=== PATIENT | female | born 1970 | race Caucasian/White ===

== ENCOUNTER 2018-08-20 08:42 | Emergency (ER) | payer MEDICAID ==
[2018-08-20 08:47] VITALS: BP 153/88; PULSE 87; RESP 18; TEMP 98.3
[2018-08-20] MEDS ORDERED: TOBRAMYCIN 0.3% OPHTH DROPS 5 ML BTL RIGHT EYE STA (09:20)
--- NOTE | 2018-08-20 09:27 | ED ---
Eye Problem HPI - General Chief complaint: Eye Problems Stated complaint: poss pink eye Time Seen by Provider: 08/20/18 09:02 Source: patient, RN notes reviewed Mode of arrival: ambulatory Limitations: no limitations - History of Present Illness Initial comments: 48 show female presented emergency department with chief complaint of right eye drainage and crusting. Patient states his started yesterday thought it was initially just ALLERGIES but states that is not improving. Patient has taken some ALLERGY medication. Patient reports no fevers or chills no change in vision no trauma. She does not wear contacts. She states that she just has some mild redness in which she feeling. - Related Data Allergies Allergy/AdvReac Type Severity Reaction Status Date / Time No Known Allergies Allergy Verified 08/20/18 08:47 Review of Systems ROS Statement: Those systems with pertinent positive or pertinent negative responses have been documented in the HPI. ROS Other: All systems not noted in ROS Statement are negative. Past Medical History Past Medical History: No Reported History History of Any Multi-Drug Resistant Organisms: None Reported Past Surgical History: Breast Surgery Additional Past Surgical History / Comment(s): BREAST REDUCTION Past Psychological History: Anxiety, Depression Smoking Status: Never smoker Past Alcohol Use History: None Reported Past Drug Use History: None Reported General Exam Limitations: no limitations General appearance: alert, in no apparent distress Head exam: Present: atraumatic, normocephalic, normal inspection Eye exam: Present: PERRL, EOMI, conjunctival injection (Mild right). Absent: normal appearance, scleral icterus, periorbital swelling ENT exam: Present: normal exam, normal oropharynx, mucous membranes moist Neck exam: Present: normal inspection. Absent: tenderness, meningismus, lymphadenopathy Respiratory exam: Present: normal lung sounds bilaterally. Absent: respiratory distress, wheezes, rales, rhonchi, stridor Cardiovascular Exam: Present: regular rate, normal rhythm, normal heart sounds. Absent: systolic murmur, diastolic murmur, rubs, gallop, clicks Course Vital Signs 08/20/18 08:44 Temperature 98.3 F Pulse Rate 87 Respiratory 18 Rate Blood Pressure 153/88 O2 Sat by Pulse 98 Oximetry Medical Decision Making - Medical Decision Making 48-year-old female presented for right eye irritation. Patient appears to have conjunctivitis will be started on Tobrex eyedrops patient instructed to follow- up, cool compresses and return for any worsening symptoms. Disposition Clinical Impression: Bacterial conjunctivitis Disposition: HOME SELF-CARE Condition: Stable Instructions (If sedation given, give patient instructions): Conjunctivitis (ED ) Additional Instructions: Please return to the Emergency Department if symptoms worsen or any other concerns. Use Tobrex eyedrops 1 drop every 4 hours for 7 days. Is patient prescribed a controlled substance at d/c from ED?: No Referrals: Live Pollard MD [Primary Care Provider] - 1-2 days Time of Disposition: 09:27
== END 2018-08-20 09:31 | disposition home or self-care (01) ==
LOC: EC 08:42
DX: H10.9 Unspecified conjunctivitis (principal)
CPT/HCPCS: 99282

== ENCOUNTER 2018-11-18 07:08 | Emergency (ER) | payer MEDICAID ==
[2018-11-18] MEDS ORDERED: KETOROLAC 30 MG/ML 1 ML VIAL IVP STA (07:27)
[2018-11-18] MEDS ORDERED: methylPREDNISolone SOD SUCCI 125 MG/2 ML VIAL IV STA (07:27)
[2018-11-18] MEDS ORDERED: LORazepam 2 MG/ML INJ IV STA (07:28)
--- NOTE | 2018-11-18 07:35 | ED ---
Back Pain HPI - General Chief Complaint: Back Pain/Injury Stated Complaint: Back Pain Time Seen by Provider: 11/18/18 07:18 Source: patient Limitations: no limitations - History of Present Illness Initial Comments: This is a 48-year-old female with no prior history of back pain issues but states her mother has sciatica who states she started developing low back pain 2 days ago. She denies any particular injury she does states she readjusted her chair where she sits or for states she was fine for the next day she started developing pain which is gotten progressively worse each day. She states it's severe sharp with some slight radiation down the left buttock and into the hip no dysuria hematuria except she is on her period at this time no loss of function to bladder bowel movement control. She states she sneezed this morning when she was on the toilet and it got much much worse. She has any fevers chills nausea vomiting sweats just severe pain. MD Complaint: back pain - Related Data Home Medications Medication Instructions Recorded Confirmed ALPRAZolam [Xanax] 0.5 mg PO TID PRN 11/18/18 11/18/18 Calcium Carbonate [Calcium] 600 mg PO DAILY 11/18/18 11/18/18 Citalopram Hydrobromide [CeleXA] 40 mg PO HS 11/18/18 11/18/18 Cranberry Fruit Extract [Cranberry] 500 mg PO DAILY 11/18/18 11/18/18 Ibuprofen [Motrin Ib] 400 mg PO Q6H PRN 11/18/18 11/18/18 Magnesium 200 mg PO DAILY 11/18/18 11/18/18 Multivitamins, Thera [Multivitamin 1 tab PO DAILY 11/18/18 11/18/18 (formulary)] [place]-3 Fatty Acids [[place]-3] 1,000 mg PO DAILY 11/18/18 11/18/18 Previous Rx's Medication Instructions Recorded Cyclobenzaprine [Flexeril] 10 mg PO TID #14 tab 11/18/18 Ibuprofen 800 mg PO Q6HR PRN #20 tablet 11/18/18 methylPREDNISolone Dose Pack 4 mg PO DIRECTED #21 package 11/18/18 [Medrol Dose Pack] Allergies Allergy/AdvReac Type Severity Reaction Status Date / Time No Known Allergies Allergy Verified 11/18/18 08:35 Review of Systems ROS Statement: Those systems with pertinent positive or pertinent negative responses have been documented in the HPI. ROS Other: All systems not noted in ROS Statement are negative. Past Medical History Past Medical History: No Reported History History of Any Multi-Drug Resistant Organisms: None Reported Past Surgical History: Breast Surgery Additional Past Surgical History / Comment(s): BREAST REDUCTION Past Psychological History: Anxiety, Depression Smoking Status: Never smoker Past Alcohol Use History: None Reported Past Drug Use History: None Reported General Exam - General Exam Comments Initial Comments: This is a well-developed well-nourished awake alert oriented 5 female who is tearful during my interview with her Limitations: no limitations General appearance: alert, anxious, in distress Head exam: Present: atraumatic, normocephalic, normal inspection Eye exam: Present: normal appearance, PERRL, EOMI. Absent: scleral icterus, conjunctival injection, periorbital swelling ENT exam: Present: normal exam, mucous membranes moist Neck exam: Present: normal inspection, full ROM. Absent: tenderness, meningismus, lymphadenopathy Respiratory exam: Present: normal lung sounds bilaterally. Absent: respiratory distress, wheezes, rales, rhonchi, stridor Cardiovascular Exam: Present: regular rate, normal rhythm, normal heart sounds. Absent: systolic murmur, diastolic murmur, rubs, gallop, clicks GI/Abdominal exam: Present: soft, normal bowel sounds. Absent: distended, tenderness, guarding, rebound, rigid, bruit, pulsatile mass Rectal exam: Present: deferred Extremities exam: Present: normal inspection, full ROM, tenderness (Tenderness over the left gluteus musculature no calf tenderness), normal capillary refill. Absent: pedal edema, joint swelling, calf tenderness Back exam: Present: normal inspection, tenderness, paraspinal tenderness (Paraspinous muscle tenderness on the left lower lumbar spine region some evidence of muscle spasm bilaterally no definite vertebral body spinous process tenderness.). Absent: CVA tenderness (R), CVA tenderness (L) Neurological exam: Present: alert, oriented X3, CN II-XII intact Psychiatric exam: Present: normal affect, anxious Skin exam: Present: warm, dry, intact, normal color. Absent: rash Course Vital Signs 11/18/18 11/18/18 07:14 09:57 Temperature 97.6 F 97.9 F Pulse Rate 94 72 Respiratory 22 18 Rate Blood Pressure 147/77 98/50 O2 Sat by Pulse 98 98 Oximetry - Reevaluation(s) Reevaluation #1: 11/18/18 09:58 Patient did get a lot of relief from the treatment that was rendered. Medical Decision Making - Medical Decision Making The patient is feeling much improved I did discuss the findings with her she'll be discharged with appropriate medication she does have a planned encounter with [employer] in the future. - Lab Data Result diagrams: 11/18/18 08:00 Lab Results 11/18/18 11/18/18 Range/Units 08:00 08:35 Sodium 140 (137-145) mmol/L Potassium 4.1 (3.5-5.1) mmol/L Chloride 109 H (98-107) mmol/L Carbon Dioxide 23 (22-30) mmol/L Anion Gap 8 mmol/L BUN 15 (7-17) mg/dL Creatinine 0.76 (0.52-1.04) mg/dL Est GFR (CKD-EPI)AfAm >90 (>60 ml/min/1.73 sqM) Est GFR (CKD-EPI)NonAf >90 (>60 ml/min/1.73 sqM) Glucose 85 (74-99) mg/dL Calcium 9.7 (8.4-10.2) mg/dL Magnesium 1.9 (1.6-2.3) mg/dL Total Bilirubin 0.3 (0.2-1.3) mg/dL AST 25 (14-36) U/L ALT 30 (9-52) U/L Alkaline Phosphatase 67 (38-126) U/L Total Protein 7.0 (6.3-8.2) g/dL Albumin 4.1 (3.5-5.0) g/dL Urine Color Yellow Urine Appearance Clear (Clear) Urine pH 8.5 H (5.0-8.0) Ur Specific [place] 1.007 (1.001-1.035) Urine Protein Trace H (Negative) Urine Glucose (UA) Negative (Negative) Urine Ketones Negative (Negative) Urine Blood Moderate H (Negative) Urine Nitrite Negative (Negative) Urine Bilirubin Negative (Negative) Urine Urobilinogen <2.0 (<2.0) mg/dL Ur Leukocyte Esterase Moderate H (Negative) Urine RBC 10 H (0-5) /hpf Urine WBC 12 H (0-5) /hpf Ur Squamous Epith Cells 1 (0-4) /hpf Urine Bacteria Rare H (None) /hpf - Radiology Data Radiology results: report reviewed (Did review the imaging and report there is evidence of degenerative disease at L5-S1 and incidental finding also of a possible dermoid cyst on the left adnexa.), image reviewed Disposition Clinical Impression: Strain of lumbar region, Sciatica, Dermoid cyst Disposition: HOME SELF-CARE Condition: Good Instructions (If sedation given, give patient instructions): Acute Low Back Pain (ED), Sciatica (ED), Cyst (ED) Prescriptions: Cyclobenzaprine [Flexeril] 10 mg PO TID #14 tab Ibuprofen 800 mg PO Q6HR PRN #20 tablet PRN Reason: Pain methylPREDNISolone Dose Pack [Medrol Dose Pack] 4 mg PO DIRECTED #21 package Is patient prescribed a controlled substance at d/c from ED?: No Referrals: Live Pollard MD [Primary Care Provider] - 1-2 days
[2018-11-18 08:25] LABS: ALT 30 U/L (9-52); AST 25 U/L (14-36); Albumin 4.1 g/dL (3.5-5.0); Alkaline Phosphatase 67 U/L (38-126); Anion Gap 8 mmol/L; Blood Urea Nitrogen 15 mg/dL (7-17); Calcium 9.7 mg/dL (8.4-10.2); Carbon Dioxide 23 mmol/L (22-30); Chloride 109 mmol/L (98-107); Glucose 85 mg/dL (74-99); Magnesium 1.9 mg/dL (1.6-2.3); Potassium 4.1 mmol/L (3.5-5.1); Sodium 140 mmol/L (137-145); Total Bilirubin 0.3 mg/dL (0.2-1.3)
--- NOTE | 2018-11-18 08:34 | CT ---
EXAMINATION TYPE: CT lumbar spine wo con DATE OF EXAM: 11/18/2018 8:20 AM COMPARISON: None. HISTORY: Severe low back pain CT DLP: 782.9 mGycm Automated exposure control for dose reduction was used. Unenhanced CT of the lumbar spine was performed. Bone and soft tissue window settings are submitted as well as coronal and sagittal reconstructions. FINDINGS: Visualized portions of the lungs are clear. Visualized paraspinal soft tissues are normal. Vertebral body height and alignment are maintained. No fractures are seen. At T12-L1 and L1-2, no definite abnormality is seen. L2-L3: There is disc space loss. This hypertrophic spondylosis present anteriorly. The intervertebral foramina are well maintained. There is a diffuse disc displacement slightly eccentric towards the le ft. There is mild hypertrophic changes in the facets. L3-L4: There is mild disc space loss and hypertrophic spondylosis. Intervertebral foramina are well m aintained. There is a diffuse disc displacement. This hypertrophic changes in the facets and mild jodie foiling of the thecal sac. L4-L5: There is disc space loss and a vacuum phenomena. There is hypertrophic spondylosis present ant eriorly. Intervertebral foramina are well maintained. There is a diffuse disc displacement. This hype rtrophic changes in the facets and mild trefoiling of the thecal sac. L5-S1: There is disc space loss and hypertrophic spondylosis. There is mild, bilateral intervertebral foraminal narrowing. There is a mild, diffuse disc displacement. There are hypertrophic changes in t he facets. IMPRESSION: 1. DIFFUSE DEGENERATIVE DISC DISEASE, HYPERTROPHIC SPONDYLOSIS AND FACET ARTHROPATHY. 2. BILATERAL INTERVERTEBRAL FORAMINAL NARROWING, L5-S1. 3. MILD DEGREE OF CENTRAL CANAL COMPROMISE, L3-4 AND L4-5.
--- NOTE | 2018-11-18 08:40 | CT ---
EXAMINATION TYPE: CT abdomen pelvis wo con DATE OF EXAM: 11/18/2018 COMPARISON: NONE HISTORY: Severe low back pain CT DLP: 782.9 mGycm Automated exposure control for dose reduction was used. FINDINGS: Visualized portions of the lungs are clear. There is no pleural or pericardial fluid. The h eart is not enlarged. Within the abdomen, the liver, spleen and gallbladder are normal. Both adrenal glands are normal. There is no evidence of hydronephrosis or nephrolithiasis. Limited views of the pancreas are normal. There is no significant retroperitoneal, iliac or inguinal adenopathy. The bladder is unremarkable. The uterus is unremarkable. There is a 4.2 x 2.9 cm left adnexal lesion containing both fat and calcium likely reflecting a dermo id cyst. Left ovary appears unremarkable. There is no significant diverticular change and there is no radiographic evidence of diverticulitis. The appendix is not visualized with certainty. There is some fecal elevation of the small bowel which may reflect small bowel stasis. There is no free fluid and no free air. Spinal structures of the described in a previous report. IMPRESSION: 1. NO ACUTE INFLAMMATORY CHANGE. 2. PROBABLE DERMOID CYST IN THE LEFT ADNEXA. 3. FECAL ELEVATION OF THE SMALL BOWEL MAY REPRESENT STASIS.
--- NOTE | 2018-11-18 08:42 | CT ---
EXAMINATION TYPE: CT sacrum wo con DATE OF EXAM: 11/18/2018 COMPARISON: None. HISTORY: Severe low back pain CT DLP: 782.9 mGycm Automated exposure control for dose reduction was used. FINDINGS: 54.2 cm left adnexal mass containing fat and calcium is again identified, likely reflecting a dermoid cyst. Paraspinal soft tissues are otherwise unremarkable. There is degenerative disc disease and hypertrophic spondylosis at L5-S1. There is mild, bilateral in tervertebral foraminal narrowing. Osseous structures of the sacrum and coccyx are otherwise unremarka ble. No fracture is seen. IMPRESSION: 1. PROBABLE DERMOID CYST IN THE LEFT ADNEXA. 2. DEGENERATIVE CHANGE AT L5-S1. 3. NO ACUTE OSSEOUS LESION.
[2018-11-18 08:57] LABS: Appearance,Urine Clear (Clear); Bacteria,Urine Rare /hpf; Bilirubin,Urine Negative (Negative); Blood,Urine Moderate (Negative); Color,Urine Yellow; Glucose,Urine (UA) Negative (Negative); Ketones,Urine Negative (Negative); Leukocyte Esterase,Urine Moderate (Negative); Nitrite,Urine Negative (Negative); PH, Urine 8.5 (5.0-8.0); Protein,Urine Trace (Negative); RBC,Urine 10 /hpf (0-5); Specific Gravity,Urine 1.007 (1.001-1.035); Squamous Epithelial Cell,Urine 1 /hpf (0-4); Urobilinogen,Urine <2.0 mg/dL (<2.0); WBC,Urine 12 /hpf (0-5)
[2018-11-18 09:57] VITALS: BP 98/50; PULSE 72; RESP 18; TEMP 97.9
== END 2018-11-18 10:00 | disposition home or self-care (01) ==
LOC: EC 07:08
DX: S39.012A Strain of muscle, fascia and tendon of lower back, initial encounter (principal); D28.7 Benign neoplasm of other specified female genital organs; M47.27 Other spondylosis with radiculopathy, lumbosacral region; F32.9 Major depressive disorder, single episode, unspecified; F41.9 Anxiety disorder, unspecified; Z79.899 Other long term (current) drug therapy; Z82.69 Family history of other diseases of the musculoskeletal system and connective tissue; X58.XXXA Exposure to other specified factors, initial encounter
CPT/HCPCS: 99284; 96374; 96375 ×2; 36415; 80053; 83735; 81001; 72131; 74176; 72192; J2060; J2930; J1885

== ENCOUNTER 2019-02-02 20:54 | Emergency (ER) | payer MEDICAID ==
[2019-02-02 21:36] LABS: Basophils % (A) 0 %; Eosinophils # (A) 1.7 k/uL (0-0.7); Eosinophils % (A) 18 %; HCT 44.1 % (34.0-46.0); HGB 13.6 gm/dL (11.4-16.0); Lymphocytes # (A) 1.2 k/uL (1.0-4.8); Lymphocytes % (A) 12 %; MCH 27.6 pg (25.0-35.0); MCHC 30.8 g/dL (31.0-37.0); MCV 89.6 fL (80.0-100.0); Mean Platelet Volume 7.6; Monocytes # (A) 0.4 k/uL (0-1.0); Monocytes % (A) 4 %; Neutrophils % (A) 63 %; Platelet Count 213 k/uL (150-450); RBC 4.93 m/uL (3.80-5.40); RDW 13.8 % (11.5-15.5); WBC 9.6 k/uL (3.8-10.6)
[2019-02-02 21:48] LABS: ALT 22 U/L (9-52); AST 19 U/L (14-36); African American GFR (CKD) >90 (>60 ml/min/1.73 sqM); Albumin 4.1 g/dL (3.5-5.0); Alkaline Phosphatase 73 U/L (38-126); Amylase 46 U/L (30-110); Anion Gap 9 mmol/L; Blood Urea Nitrogen 12 mg/dL (7-17); Calcium 9.2 mg/dL (8.4-10.2); Carbon Dioxide 23 mmol/L (22-30); Chloride 108 mmol/L (98-107); Glucose 98 mg/dL (74-99); Sodium 140 mmol/L (137-145); Total Bilirubin 0.3 mg/dL (0.2-1.3)
[2019-02-02 22:52] VITALS: BP 146/94; PULSE 68; RESP 15
--- NOTE | 2019-02-02 22:54 | ED ---
Nausea/Vomiting/Diarrhea HPI - General Chief complaint: Nausea/Vomiting/Diarrhea Stated complaint: diarrhea Time Seen by Provider: 02/02/19 21:13 Source: patient Mode of arrival: ambulatory Limitations: no limitations - History of Present Illness Initial comments: 's patient is a 48-year-old woman who presents to be evaluated for a few days of diarrhea. The patient reports that she had recently changed her diet to no longer include meat. She states that over this past week she has been having episodic diarrhea after she eats what seems like certain things. She reports that in the morning she will often have a granola bar and she had a new brand of these. I states that approximately 1-2 hours after eating 1, she experienced any diarrhea. She did have some gassy abdominal cramping but that cleared and she stated that wasn't ivet pain. The patient states that this had recurred on some subsequent days. She states that she does seem to be able tolerate other foods without having the cramping and diarrhea. When I performed the history a nd physical she is not currently having any symptoms. Patient also has had some intermittent nausea though no vomiting. MD complaint: nausea, diarrhea -: days(s) Description of Diarrhea: other (Runny stool) Associated Abdominal Pain: No Quality: cramping Consistency: intermittent Improves with: none Worsens with: eating Associated Symptoms: denies other symptoms - Related Data Home Medications Medication Instructions Recorded Confirmed ALPRAZolam [Xanax] 0.5 mg PO TID PRN 11/18/18 02/02/19 Calcium Carbonate [Calcium] 600 mg PO AC-SUPPER 11/18/18 02/02/19 Citalopram Hydrobromide [CeleXA] 40 mg PO AC-SUPPER 11/18/18 02/02/19 Cranberry Fruit Extract [Cranberry] 500 mg PO AC-SUPPER 11/18/18 02/02/19 Magnesium 200 mg PO AC-SUPPER 11/18/18 02/02/19 Multivitamins, Thera [Multivitamin 1 tab PO AC-SUPPER 11/18/18 02/02/19 (formulary)] [place]-3 Fatty Acids [[place]-3] 1,000 mg PO AC-SUPPER 11/18/18 02/02/19 Previous Rx's Medication Instructions Recorded Ondansetron Odt [Zofran ODT] 4 mg PO Q8HR PRN #10 tab 02/02/19 Allergies Allergy/AdvReac Type Severity Reaction Status Date / Time No Known Allergies Allergy Verified 02/02/19 21:49 Review of Systems ROS Statement: Those systems with pertinent positive or pertinent negative responses have been documented in the HPI. ROS Other: All systems not noted in ROS Statement are negative. Constitutional: Denies: fever, chills Respiratory: Denies: cough, dyspnea Cardiovascular: Denies: chest pain, palpitations Gastrointestinal: Reports: nausea, diarrhea. Denies: constipation Genitourinary: Denies: dysuria, frequency, hematuria, discharge, abnormal menses Musculoskeletal: Denies: back pain Skin: Denies: rash Neurological: Denies: headache Past Medical History Past Medical History: No Reported History History of Any Multi-Drug Resistant Organisms: None Reported Past Surgical History: Breast Surgery Additional Past Surgical History / Comment(s): BREAST REDUCTION Past Psychological History: Anxiety, Depression Smoking Status: Never smoker Past Alcohol Use History: None Reported Past Drug Use History: None Reported General Exam Limitations: no limitations General appearance: alert, in no apparent distress Head exam: Present: atraumatic, normocephalic Eye exam: Present: normal appearance. Absent: scleral icterus, conjunctival injection ENT exam: Present: normal oropharynx Neck exam: Present: normal inspection Respiratory exam: Present: normal lung sounds bilaterally. Absent: respiratory distress, wheezes, rales, rhonchi, stridor Cardiovascular Exam: Present: regular rate, normal rhythm, normal heart sounds. Absent: systolic murmur, diastolic murmur, rubs, gallop GI/Abdominal exam: Present: soft, normal bowel sounds. Absent: distended, tenderness, guarding, rebound, rigid, mass, pulsatile mass, hernia Extremities exam: Present: normal inspection, normal capillary refill. Absent: pedal edema, calf tenderness Back exam: Present: normal inspection. Absent: CVA tenderness (R), CVA tenderness (L) Neurological exam: Present: alert Skin exam: Present: warm, dry, intact, normal color. Absent: rash Course Vital Signs 02/02/19 02/02/19 02/02/19 21:04 22:47 23:05 Temperature 98.8 F 98.2 F 98.4 F Pulse Rate 76 68 Respiratory 18 15 Rate Blood Pressure 153/90 146/94 O2 Sat by Pulse 99 99 Oximetry Medical Decision Making - Lab Data Result diagrams: 02/02/19 21:25 02/02/19 21:25 Lab Results 02/02/19 02/02/19 Range/Units 21:25 21:25 WBC 9.6 (3.8-10.6) k/uL RBC 4.93 (3.80-5.40) m/uL Hgb 13.6 (11.4-16.0) gm/dL Hct 44.1 (34.0-46.0) % MCV 89.6 (80.0-100.0) fL MCH 27.6 (25.0-35.0) pg MCHC 30.8 L (31.0-37.0) g/dL RDW 13.8 (11.5-15.5) % Plt Count 213 (150-450) k/uL Neutrophils % 63 % Lymphocytes % 12 % Monocytes % 4 % Eosinophils % 18 % Basophils % 0 % Neutrophils # 6.0 (1.3-7.7) k/uL Lymphocytes # 1.2 (1.0-4.8) k/uL Monocytes # 0.4 (0-1.0) k/uL Eosinophils # 1.7 H (0-0.7) k/uL Basophils # 0.0 (0-0.2) k/uL Sodium 140 (137-145) mmol/L Potassium 4.0 (3.5-5.1) mmol/L Chloride 108 H (98-107) mmol/L Carbon Dioxide 23 (22-30) mmol/L Anion Gap 9 mmol/L BUN 12 (7-17) mg/dL Creatinine 0.68 (0.52-1.04) mg/dL Est GFR (CKD-EPI)AfAm >90 (>60 ml/min/1.73 sqM) Est GFR (CKD-EPI)NonAf >90 (>60 ml/min/1.73 sqM) Glucose 98 (74-99) mg/dL Calcium 9.2 (8.4-10.2) mg/dL Total Bilirubin 0.3 (0.2-1.3) mg/dL AST 19 (14-36) U/L ALT 22 (9-52) U/L Alkaline Phosphatase 73 (38-126) U/L Total Protein 7.0 (6.3-8.2) g/dL Albumin 4.1 (3.5-5.0) g/dL Amylase 46 (30-110) U/L Lipase 42 (23-300) U/L Disposition Clinical Impression: Diarrhea Disposition: HOME SELF-CARE Condition: Good Instructions (If sedation given, give patient instructions): Acute Diarrhea (ED) Prescriptions: Ondansetron Odt [Zofran ODT] 4 mg PO Q8HR PRN #10 tab PRN Reason: Nausea Is patient prescribed a controlled substance at d/c from ED?: No Referrals: Live Pollard MD [Primary Care Provider] - 1-2 days
[2019-02-02 23:06] VITALS: TEMP 98.4
== END 2019-02-02 23:04 | disposition home or self-care (01) ==
LOC: EC 20:54
DX: R19.7 Diarrhea, unspecified (principal); R11.0 Nausea; F41.9 Anxiety disorder, unspecified; F32.9 Major depressive disorder, single episode, unspecified; Z79.899 Other long term (current) drug therapy
CPT/HCPCS: 36415; 80053; 82150; 83690; 85025; 99284

== ENCOUNTER → 2019-11-22 | Outpatient (CLI) | payer MEDICAID ==
[2019-11-22 12:27] LABS: Basophils % (A) 1 %; Eosinophils # (A) 0.8 k/uL (0-0.7); Eosinophils % (A) 13 %; HCT 42.9 % (34.0-46.0); HGB 14.2 gm/dL (11.4-16.0); Lymphocytes % (A) 17 %; MCH 30.5 pg (25.0-35.0); MCHC 33.2 g/dL (31.0-37.0); MCV 91.8 fL (80.0-100.0); Mean Platelet Volume 7.7; Monocytes # (A) 0.3 k/uL (0-1.0); Monocytes % (A) 6 %; Neutrophils # (A) 3.9 k/uL (1.3-7.7); Neutrophils % (A) 63 %; Platelet Count 287 k/uL (150-450); RBC 4.67 m/uL (3.80-5.40); RDW 12.8 % (11.5-15.5); WBC 6.3 k/uL (3.8-10.6)
[2019-11-22 12:46] LABS: Appearance,Urine Cloudy (Clear); Bacteria,Urine Rare /hpf; Bilirubin,Urine Negative (Negative); Blood,Urine Negative (Negative); Color,Urine Yellow; Glucose,Urine (UA) Negative (Negative); Ketones,Urine Negative (Negative); Leukocyte Esterase,Urine Moderate (Negative); Mucus,Urine Moderate /hpf; Nitrite,Urine Negative (Negative); Protein,Urine Trace (Negative); RBC,Urine 2 /hpf (0-5); Specific Gravity,Urine 1.025 (1.001-1.035); Squamous Epithelial Cell,Urine 12 /hpf (0-4); Urobilinogen,Urine <2.0 mg/dL (<2.0); WBC,Urine 3 /hpf (0-5)
[2019-11-22 21:10] LABS: African American GFR (CKD) 101.8 (60.0-200.0); Albumin/Globulin Ratio 1.67 (1.60-3.17); Anion Gap 10.7 mmol/L (4.00-12.00); BUN/Creat Ratio 11.25 Ratio (12.00-20.00); Calcium 9.2 mg/dL (8.7-10.3); Carbon Dioxide 28.3 mmol/L (21.6-31.8); Globulin 2.4 g/dL (1.6-3.3); Non-African American GFR(CKD) 87.8 (60.0-200.0); Potassium 4.4 mmol/L (3.5-5.5); Total Bilirubin 0.3 mg/dL (0.3-1.2); Total Protein 6.4 g/dL (6.2-8.2)
== END | disposition home or self-care (01) ==
LOC: LABWHC1 11:51
PROVIDERS: ATTEND Family Medicine
DX: M54.5 Low back pain (principal); F34.1 Dysthymic disorder; F41.9 Anxiety disorder, unspecified
CPT/HCPCS: 36415; 80053; 81001; 82306; 84443; 85025

== ENCOUNTER → 2021-05-26 | Outpatient (CLI) | payer MEDICAID ==
[2021-05-27 01:51] LABS: Thyroid Peroxidase Antibodies <9.0 U/mL (0.0-33.0)
== END | disposition home or self-care (01) ==
LOC: LABWHC1 14:44
PROVIDERS: ATTEND Family Medicine
DX: E55.9 Vitamin D deficiency, unspecified (principal); B36.9 Superficial mycosis, unspecified
CPT/HCPCS: 36415; 82306; 84443; 86376; 86800

== ENCOUNTER → 2021-07-22 | Outpatient (CLI) | payer MEDICAID ==
--- NOTE | 2021-07-23 09:30 | MM ---
Reason for exam: screening (asymptomatic). Last mammogram was performed 9 years and 11 months ago. History: Patient is nulliparous. Reductions of both breasts, 2001. Physical Findings: A clinical breast exam by your physician is recommended on an annual basis and results should be correlated with mammographic findings. MG 3D Screening Mammo W/Cad Bilateral CC and MLO view(s) were taken. Prior study comparison: September 03, 2011, bilateral digital screening mammo w/CAD. Focal asymmetry right breast. No significant changes when compared with prior studies. ASSESSMENT: Benign, BI-RAD 2 RECOMMENDATION: Routine screening mammogram of both breasts in 1 year.
== END | disposition home or self-care (01) ==
LOC: RADMAMWWP 07:07
PROVIDERS: ATTEND Family Medicine
DX: Z12.31 Encounter for screening mammogram for malignant neoplasm of breast (principal)
CPT/HCPCS: 77063; 77067

== ENCOUNTER 2021-09-01 03:20 | Observation (INO) | payer MEDICAID ==
[2021-09-01] MEDS ORDERED: SODIUM CHLORIDE 0.9% 1,000 ML IV STA (03:32)
--- NOTE | 2021-09-01 03:32 | ED ---
Chest Pain HPI - General Stated Complaint: Chest pain Time Seen by Provider: 09/01/21 03:25 Source: RN notes reviewed, old records reviewed Mode of arrival: ambulatory Limitations: no limitations - History of Present Illness Initial Comments: This is a 51-year-old female to the emergency department today. Patient presents today for evaluation regards to chest pain. Patient has persistent chest pain here in the ER increasing in frequency. Patient does have significant history of heart disease history of high blood pressure undiagnosed, no high cholesterol nonsmoker no history of prior heart disease. Patient has had an EKG in the past but no other significant cardiac testing. Patient is nursing travel history or sick contacts. Patient does have a family history of heart attack and dad at a young age less than 60 from heart attack MD Complaint: chest pain -: minutes(s) Onset: during rest Pain Location: substernal Pain Radiation: none Severity: moderate Severity scale (1-10): 4 Quality: tightness Consistency: constant Improves With: nothing Worsens With: nothing Anginal Symptoms: nausea Other Symptoms: palpitations Treatments Prior to Arrival: none - Related Data Home Medications Medication Instructions Recorded Confirmed ALPRAZolam [Xanax] 0.5 mg PO TID PRN 11/18/18 02/02/19 Calcium Carbonate [Calcium] 600 mg PO AC-SUPPER 11/18/18 02/02/19 Citalopram Hydrobromide [CeleXA] 40 mg PO AC-SUPPER 11/18/18 02/02/19 Cranberry Fruit Extract [Cranberry] 500 mg PO AC-SUPPER 11/18/18 02/02/19 Magnesium 200 mg PO AC-SUPPER 11/18/18 02/02/19 Multivitamins, Thera [Multivitamin 1 tab PO AC-SUPPER 11/18/18 02/02/19 (formulary)] Madison-3 Fatty Acids [Madison-3] 1,000 mg PO AC-SUPPER 11/18/18 02/02/19 Previous Rx's Medication Instructions Recorded Ondansetron Odt [Zofran ODT] 4 mg PO Q8HR PRN #10 tab 02/02/19 Allergies Allergy/AdvReac Type Severity Reaction Status Date / Time No Known Allergies Allergy Verified 09/01/21 03:38 Review of Systems ROS Statement: Those systems with pertinent positive or pertinent negative responses have been documented in the HPI. ROS Other: All systems not noted in ROS Statement are negative. EKG Findings - EKG Comments: EKG Findings:: EKG shows sinus bradycardia 59 NH 128 QRS 93 QTc 449 Past Medical History Past Medical History: No Reported History History of Any Multi-Drug Resistant Organisms: None Reported Past Surgical History: Breast Surgery Additional Past Surgical History / Comment(s): BREAST REDUCTION Past Psychological History: Anxiety, Depression Past Alcohol Use History: None Reported Past Drug Use History: None Reported General Exam General appearance: alert, in no apparent distress, anxious Head exam: Present: atraumatic, normocephalic, normal inspection Eye exam: Present: normal appearance, PERRL, EOMI. Absent: scleral icterus, conjunctival injection, periorbital swelling ENT exam: Present: normal exam, mucous membranes moist Neck exam: Present: normal inspection. Absent: tenderness, meningismus, lymphadenopathy Respiratory exam: Present: normal lung sounds bilaterally. Absent: respiratory distress, wheezes, rales, rhonchi, stridor Cardiovascular Exam: Present: regular rate, normal rhythm, normal heart sounds. Absent: systolic murmur, diastolic murmur, rubs, gallop, clicks GI/Abdominal exam: Present: soft, normal bowel sounds. Absent: distended, tenderness, guarding, rebound, rigid Extremities exam: Present: normal inspection, full ROM, normal capillary refill. Absent: tenderness, pedal edema, joint swelling, calf tenderness Back exam: Present: normal inspection Neurological exam: Present: alert, oriented X3, CN II-XII intact Psychiatric exam: Present: normal affect, normal mood Skin exam: Present: warm, dry, intact, normal color. Absent: rash Course Vital Signs 09/01/21 09/01/21 03:36 05:57 Temperature 98.1 F Pulse Rate 60 63 Respiratory 18 18 Rate Blood Pressure 144/78 142/88 O2 Sat by Pulse 100 97 Oximetry - Reevaluation(s) Reevaluation #1: 09/01/21 06:21 Medical record is reviewed Reevaluation #2: 09/01/21 06:21 Patient still with episodic chest pain here in the ER Reevaluation #3: 09/01/21 06:21 Patient informed results and questions answered - Consultations Consultation #1: Spoke with Dr. Lisset lima who is agreeable Chest Pain MDM - MDM 51 female to the emergency department for evaluation of chest pain. Father at early age of chest pain and heart attack. Patient coming in for chest pain and will be admitted for observation of cardiac Disposition Clinical Impression: Chest pain Disposition: ADMITTED IP TO THIS HOSP Condition: Undetermined Is patient prescribed a controlled substance at d/c from ED?: No Referrals: Live Pollard MD [Primary Care Provider] - 1-2 days
--- NOTE | 2021-09-01 04:04 | XR ---
EXAMINATION TYPE: XR chest 2V DATE OF EXAM: 09/01/2021 COMPARISON: NONE HISTORY: Chest pain TECHNIQUE: 2 views FINDINGS: Heart and mediastinum are normal. Lungs are clear. Diaphragm is normal. Bony thorax is inta ct. IMPRESSION: Normal chest.
[2021-09-01 04:20] LABS: Basophils # (A) 0.1 k/uL (0-0.2); Basophils % (A) 1 %; Eosinophils # (A) 0.8 k/uL (0-0.7); Eosinophils % (A) 8 %; HGB 14.6 gm/dL (11.4-16.0); Lymphocytes # (A) 1.6 k/uL (1.0-4.8); Lymphocytes % (A) 16 %; MCHC 33.2 g/dL (31.0-37.0); MCV 93.3 fL (80.0-100.0); Mean Platelet Volume 7.9; Monocytes # (A) 0.4 k/uL (0-1.0); Monocytes % (A) 4 %; Neutrophils # (A) 7.1 k/uL (1.3-7.7); Neutrophils % (A) 70 %; Platelet Count 278 k/uL (150-450); RBC 4.72 m/uL (3.80-5.40); RDW 12.9 % (11.5-15.5); WBC 10.1 k/uL (3.8-10.6)
[2021-09-01] MEDS ORDERED: MORPHINE SULFATE 4 MG/ML SYRINGE IVP STA (04:24)
[2021-09-01 04:33] LABS: INR 0.9 (<1.2); Partial Thromboplastin Time 22.7 sec (22.0-30.0); Prothrombin Time 9.9 sec (9.0-12.0)
[2021-09-01 04:37] LABS: Albumin 3.4 g/dL (3.5-5.0); Calcium 8.1 mg/dL (8.4-10.2); Potassium 3.6 mmol/L (3.5-5.1); Total Bilirubin 0.3 mg/dL (0.2-1.3); Total Protein 6.2 g/dL (6.3-8.2)
[2021-09-01] MEDS ORDERED: ONDANSETRON 4 MG/2 ML VIAL IVP STA (05:00)
[2021-09-01] MEDS ORDERED: MORPHINE SULFATE 4 MG/ML SYRINGE IV PRN (06:18)
[2021-09-01] MEDS ORDERED: NITROGLYCERIN SL TABS 0.4 MG TAB SUBLINGUAL PRN (06:18)
[2021-09-01] MEDS ORDERED: ASPIRIN 81 MG PO STA (06:18)
[2021-09-01] MEDS: SODIUM CHLORIDE 0.9% 1,000 ML IV SCH ×2 (07:09→18:22)
[2021-09-01] MEDS: ONDANSETRON 4 MG/2 ML VIAL IVP PRN ×2 (07:53→21:10)
[2021-09-01] MEDS ORDERED: ALPRAZolam 0.5 MG TAB PO PRN (09:28)
--- NOTE | 2021-09-01 09:38 | ECHOF ---
Referral Reason:cp MEASUREMENTS -------- HEIGHT: 162.6 cm WEIGHT: 70.3 kg BP: 136/66 RVIDd: 2.7 cm (< 3.3) IVSd: 1.1 cm (0.6 - 1.1) LVIDd: 4.0 cm (3.9 - 5.3) LVPWd: 1.2 cm (0.6 - 1.1) IVSs: 1.4 cm LVIDs: 2.7 cm LVPWs: 1.4 cm LA Diam: 3.3 cm (2.7 - 3.8) LAESV Index (A-L): 21.94 ml/m Ao Diam: 2.7 cm (2.0 - 3.7) AV Cusp: 1.8 cm (1.5 - 2.6) MV EXCURSION: 13.874 mm (> 18.000) MV EF SLOPE: 119 mm/s (70 - 150) EPSS: 0.5 cm MV E Stuart: 1.03 m/s MV DecT: 171 ms MV A Stuart: 0.63 m/s MV E/A Ratio: 1.63 RAP: 5.00 mmHg RVSP: 30.61 mmHg FINDINGS -------- Sinus rhythm. This was a technically good study. The left ventricular size is normal. There is borderline concentric left ventricular hypertrophy. Overall left ventricular systolic function is normal with, an EF between 60 - 65 %. The right ventricle is normal in size. Normal LA size by volume 22+/-6 ml/m2. The right atrium is normal in size. Interatrial and interventricular septum intact. The aortic valve is trileaflet, and appears structurally normal. No aortic stenosis or regurgitation. There is trace to mild mitral regurgitation. Mild tricuspid regurgitation present. Right ventricular systolic pressure is normal at < 35 mmHg. Trace/mild (physiologic) pulmonic regurgitation. The aortic root size is normal. Normal inferior vena cava with normal inspiratory collapse consistent with estimated right atrial pre ssure of 5 mmHg. There is no pericardial effusion. CONCLUSIONS -------- 1. The left ventricular size is normal. 2. There is borderline concentric left ventricular hypertrophy. 3. Overall left ventricular systolic function is normal with, an EF between 60 - 65 %. 4. There is trace to mild mitral regurgitation. 5. Mild tricuspid regurgitation present. 6. Trace/mild (physiologic) pulmonic regurgitation. 7. There is no pericardial effusion. MULE RIDER: SANTA Thor[place]
--- NOTE | 2021-09-01 10:00 | P.CRDCN ---
History of Present Illness History of present illness: HISTORY OF PRESENTING ILLNESS This is a pleasant 51-year-old female past medical history significant for anxiety. 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 She does not have a history of cardiac disease. We have been asked to see in consultation for chest pain. Patient presents emergency department with complaints of episode of chest pressure that began yesterday at 2 PM. Chest pressure is located in the center of her chest. Radiating to the left side of her chest/left breast. The pain is constant, nonexertional. She states yesterday the chest pain continued and she had associated nausea. She states she had some baking soda and water with no relief. She called EMS and was brought to the emergency department. In the EMS patient denied 9/10 chest pressure, she was given aspirin and some legal nitroglycerin with no relief. She was also given 4 mg of IV morphine overnight and 4 mg by morphine this morning. She continues to have some mild chest pressure, states it has significantly improved and rated 4/10. She denies any associated shortness of breath, lightheadedness, dizziness, syncope or near syncope, diaphoresis. She denies any cough, fever, chills. Her chest pain is not reproducible to palpation to the chest or deep breathing. She denies history of coronary artery disease, [place], stroke, diabetes, hypertension, dyslipidemia. She denies tobacco use, alcohol use or illicit drug use. Family history includes father past away after dissecting aorta and his 60s. DIAGNOSTICS EKG reveals sinus bradycardia, heart rate 59, some mild ST depression in lead II. No prior EKG to compare. Telemetry tracings indicate sinus mechanism, heart rate 60s80 Chest xray no acute cardiopulmonary process. Laboratory reviewed, CBC unremarkable, d-dimer negative, sodium 136, potassium 3.6, BUN 17, serum current 0.9, magnesium 2.0, proBNP 67, troponin negative 2 Current home medications include when necessary Xanax and Celexa Echocardiogram revealed EF of 6065%, trace to mild mitral regurgitation, mild tricuspid regurgitation. REVIEW OF SYSTEMS At the time of my exam: CONSTITUTIONAL: Denies fever or chills. CARDIOVASCULAR: +chest pain, Denies shortness of breath, orthopnea, PND or palpitations. RESPIRATORY: Denies cough. GASTROINTESTINAL: Denies abdominal pain, diarrhea, constipation, nausea or vomiting. MUSCULOSKELETAL: Denies myalgias. NEUROLOGIC: Denies numbness, tingling, headache or weakness. ENDOCRINE: Denies fatigue, weight change, polydipsia or polyurina. GENITOURINARY: Denies burning, hematuria or urgency with micturation. HEMATOLOGIC: Denies history of anemia or bleeding. PHYSICAL EXAMINATION Blood pressure 145/86, heart rate 85, afebrile, oxygen saturation 100% on room air CONSTITUTIONAL: No apparent distress. HEENT: Head is normocephalic. Pupils are equal, round. Sclerae anicteric. Mucous membranes of the mouth are moist. No JVD. No carotid bruit. CHEST EXAMINATION: Lungs are clear to auscultation. No chest wall tenderness is noted on palpation or with deep breathing. HEART EXAMINATION: Regular rate and rhythm. S1, S2 heard. No murmurs, gallops or rub. ABDOMEN: Soft, nontender. Positive bowel sounds. EXTREMITIES: 2+ peripheral pulses, no lower extremity edema and no calf tenderness. SKIN: Warm, dry NEUROLOGIC EXAMINATION: Patient is awake, alert and oriented x3. ASSESSMENT Chest pain, atypical, acute coronary syndrome has ruled out History of anxiety PLAN An acute coronary event has been ruled out with no EKG evidence of ischemia and negative cardiac enzymes. Perform stress echo test to assess for stress induced cardiac ischemia. If abnormal will consider coronary angiography. Stress test is negative for stress induced ischemia, patient is ok to be discharge from a cardiology perspective. Thank you kindly for this consultation. Nurse practitioner note has been reviewed by physician. Signing provider agrees with the documented findings, assessment, and plan of care. Past Medical History Past Medical History: No Reported History History of Any Multi-Drug Resistant Organisms: None Reported Past Surgical History: Breast Surgery Additional Past Surgical History / Comment(s): BREAST REDUCTION Past Psychological History: Anxiety, Depression Past Alcohol Use History: None Reported Past Drug Use History: None Reported Medications and Allergies Home Medications Medication Instructions Recorded Confirmed Type ALPRAZolam [Xanax] 0.5 mg PO TID PRN 11/18/18 09/01/21 History Citalopram Hydrobromide [CeleXA] 40 mg PO HS 11/18/18 09/01/21 History Allergies Allergy/AdvReac Type Severity Reaction Status Date / Time pineapple AdvReac ALLEN & Verified 09/01/21 06:36 Nausea Physical Exam Vitals: Vital Signs Temp Pulse Resp BP Pulse Ox 09/01/21 06:43 70 20 136/66 95 09/01/21 05:57 63 18 142/88 97 09/01/21 03:36 98.1 F 60 18 144/78 100 Intake and Output 08/31/21 09/01/21 09/01/21 22:59 06:59 14:59 Other: Weight 70.307 kg Results 09/01/21 03:34 09/01/21 03:34 Cardiac Enzymes 09/01/21 09/01/21 Range/Units 03:34 03:34 AST 24 (14-36) U/L Troponin I <0.012 (0.000-0.034) ng/mL Coagulation 09/01/21 Range/Units 03:34 PT 9.9 (9.0-12.0) sec APTT 22.7 (22.0-30.0) sec CBC 09/01/21 Range/Units 03:34 WBC 10.1 (3.8-10.6) k/uL RBC 4.72 (3.80-5.40) m/uL Hgb 14.6 (11.4-16.0) gm/dL Hct 44.0 (34.0-46.0) % Plt Count 278 (150-450) k/uL Comprehensive Metabolic Panel 09/01/21 Range/Units 03:34 Sodium 136 L (137-145) mmol/L Potassium 3.6 (3.5-5.1) mmol/L Chloride 110 H (98-107) mmol/L Carbon Dioxide 20 L (22-30) mmol/L BUN 17 (7-17) mg/dL Creatinine 0.94 (0.52-1.04) mg/dL Glucose 79 (74-99) mg/dL Calcium 8.1 L (8.4-10.2) mg/dL AST 24 (14-36) U/L ALT 14 (4-34) U/L Alkaline Phosphatase 62 (38-126) U/L Total Protein 6.2 L (6.3-8.2) g/dL Albumin 3.4 L (3.5-5.0) g/dL Current Medications Generic Name Dose Route Start Last Admin Trade Name Freq PRN Reason Stop Dose Admin Aspirin 325 mg 09/02/21 09:00 Aspirin 325 Mg Tab PO DAILY CHANTELLE Sodium Chloride 1,000 mls @ 100 mls/hr 09/01/21 06:30 09/01/21 07:09 Saline 0.9% IV 100 mls/hr .Q10H CHANTELLE Administration Morphine Sulfate 4 mg 09/01/21 06:18 Morphine Sulfate 4 Mg/Ml Syringe IV Q4HR PRN Chest Pain Nitroglycerin 0.4 mg 09/01/21 06:18 Nitroglycerin Sl Tabs 0.4 Mg Tab SUBLINGUAL Q5M PRN Chest Pain Intake and Output 08/31/21 09/01/21 09/01/21 22:59 06:59 14:59 Other: Weight 70.307 kg 09/01/21 03:34 09/01/21 03:34
[2021-09-01] MEDS: PANTOPRAZOLE 40 MG/10 ML VIAL IVP SCH ×2 (10:16→21:10)
[2021-09-01] MEDS: METOCLOPRAMIDE 5 MG/ML 2 ML VIAL IVP PRN ×2 (10:19→17:53)
--- NOTE | 2021-09-01 13:43 | US ---
EXAMINATION TYPE: US gallbladder DATE OF EXAM: 09/01/2021 COMPARISON: CT dated 11/18/2018 CLINICAL HISTORY: epigastric pain and nausea. Pt states chest pain and pressure that started this AM EXAM MEASUREMENTS: Liver Length: 13.9 cm Gallbladder Wall: 0.5 cm CBD: 0.5 cm Right Kidney: 9.0 x 4.0 x 4.1 cm Pancreas: wnl, tail obscured by overlying bowel gas Liver: wnl Gallbladder: Multiple gallstones with 7mm non-mobile gallstone in neck, wall thickened with probable pericholecystic fluid Evidence for sonographic Goodson's sign: Yes CBD: wnl Right Kidney: wnl IMPRESSION: Correlate for cholecystitis. There is cholelithiasis.
--- NOTE | 2021-09-01 15:50 | P.HPIM ---
History of Present Illness H&P Date: 09/01/21 HISTORY OF PRESENT ILLNESS This is a 51-year-old female patient of Dr. Pollard with past medical history of generalized anxiety disorder. Patient states that she woke up with chest pain in the middle of her chest was a pressure-type along with nausea she has never had anything like this in the past. She denies any spicy foods. She ate pot roast for dinner last night and also had cake and coffee around 5:30. She states she occasionally has gastric reflux but does not take any medications. Chest pain was in the center and radiated to the left side of her chest. No radiation into her neck or arms. She states that her father had aortic dissection at age 60 and its only reason she came into the hospital. She received 1 nitroglycerin from EMS not sure if this helped but morphine did help her pain. She continues to have nausea and was started on Zofran and Reglan but was unable to perform the stress test ordered by cardiology. Patient finally had one emesis and has been feeling better since. She denies any history of gallbladder disease and no right upper quadrant tenderness, no diarrhea, a little tenderness in the epigastric area. He denies any increased stress in her life. Patient presented to [facility] emergency center for further e valuation and treatment. She was found to be afebrile, heart rate in the 60s, blood pressure 144/78, pulse ox 100% on room air. EKG is sinus bradycardia with inverted T in the V1 lead. CBC was unremarkable. Sodium 136, potassium 3.6, chloride 110, CO2 20, creatinine 0.94. Liver function tests were normal. Calcium 8.1. ProBNP 67. Troponin negative on 2 draws. Albumin 3.4. Lipase 131. REVIEW OF SYSTEMS Constitutional: No fever, no chills, no night sweats. No weight change. No weakness, fatigue or lethargy. No daytime sleepiness. EENT: No headache. No blurred vision or double vision, no loss of vision. No loss of Hearing, no ringing in the ears, no dizziness. No nasal drainage or congestion. No epistaxis. No sore throat. Lungs: No shortness of breath, cough, no sputum production. No wheezing. Cardiovascular: Reports chest pain, no lower extremity edema. No palpitations. No paroxysmal nocturnal dyspnea. No orthopnea. No lightheadedness or diz ziness. No syncopal episodes. Abdominal: No abdominal pain. No nausea, vomiting. No diarrhea. No constipation. No bloody or tarry stools. No loss of appetite. Genitourinary: No dysuria, increased frequency, urgency. No urinary retention. Musculoskeletal: No myalgias. No muscle weakness, no gait dysfunction, no frequent falls. No back pain. No neck pain. Integumentary: No wounds, no lesions. No rash or pruritus. No unusual bruising. No change in hair or nails. Neurologic: No aphasia. No facial droop. No change in mentation. No head injury. No headache. No paralysis. No paresthesia. Psychiatric: No depression. No anxiety. No mood swings. Endocrine: No abnormal blood sugars. No weight change. No excessive sweating or thirst. No cold intolerance. SOCIAL HISTORY Patient is a lifelong nonsmoker, no alcohol abuse, no marijuana or illicit drug use.. FAMILY HISTORY Mother at age 75 from COPD. Father at age 60 from aortic dissection. Patient has 2 brothers and one has passed from COPD and 1 has passed from brain cancer. She has one brother living with no major medical problems. She does not have any sisters and no children.. PHYSICAL EXAMINATION Gen: This is a 51-year-old female. Patient is resting on the ER stretcher and appears to be comfortable and in no acute distress. No respiratory distress is noted. HEENT: Head is atraumatic, normocephalic. Pupils equal, round. Sclerae is anicteric. NECK: Supple. No JVD. No lymphadenopathy. No thyromegaly. LUNGS: Clear to auscultation. No wheezes or rhonchi. No intercostal retractions. HEART: Regular rate and rhythm. No murmur. ABDOMEN: Soft. Bowel sounds are present. No masses. No tenderness. EXTREMITIES: No pedal edema. No calf tenderness. NEUROLOGICAL: Patient is awake, alert and oriented x3. Cranial nerves 2 through 12 are grossly intact. ASSESSMENT AND PLAN 1. Chest pain with negative troponins. Cardiology consult. Echocardiogram and stress echo ordered. 2. Intractable nausea. Patient started on Zofran and Reglan. 3. Generalized anxiety disorder. Patient will be resumed on Xanax 0.5 mg 3 times daily as needed, Celexa 40 mg at bedtime. Patient placed as an observation status. DISCHARGE PLAN Return home. Impression and plan of care have been directed as dictated by the signing physician. Dottie Crane nurse practitioner acting as scribe for signing physician. Past Medical History Past Medical History: No Reported History History of Any Multi-Drug Resistant Organisms: None Reported Past Surgical History: Breast Surgery Additional Past Surgical History / Comment(s): BREAST REDUCTION Past Psychological History: Anxiety, Depression Past Alcohol Use History: None Reported Past Drug Use History: None Reported - Past Family History Mother Family Medical History: COPD Father Additional Family Medical History / Comment(s): from AAA at 60 years old Medications and Allergies Home Medications Medication Instructions Recorded Confirmed Type ALPRAZolam [Xanax] 0.5 mg PO TID PRN 11/18/18 09/01/21 History Citalopram Hydrobromide [CeleXA] 40 mg PO HS 11/18/18 09/01/21 History Ondansetron [Zofran] 4 mg PO Q8HR PRN #30 tab 09/01/21 Rx Pantoprazole Sodium [Protonix] 40 mg PO AC-BID #30 tab 09/01/21 Rx Allergies Allergy/AdvReac Type Severity Reaction Status Date / Time pineapple AdvReac ALLEN & Verified 09/01/21 06:36 Nausea Physical Exam Vitals: Vital Signs Temp Pulse Resp BP Pulse Ox 09/01/21 07:48 85 20 145/86 100 09/01/21 06:43 70 20 136/66 95 09/01/21 05:57 63 18 142/88 97 09/01/21 03:36 98.1 F 60 18 144/78 100 Intake and Output 08/31/21 09/01/21 09/01/21 22:59 06:59 14:59 Other: Weight 70.307 kg Results CBC & Chem 7: 09/01/21 03:34 09/01/21 03:34 Labs: Abnormal Lab Results - Last 24 Hours (Table) 09/01/21 09/01/21 Range/Units 03:34 03:34 Eosinophils # 0.8 H (0-0.7) k/uL Sodium 136 L (137-145) mmol/L Chloride 110 H (98-107) mmol/L Carbon Dioxide 20 L (22-30) mmol/L Calcium 8.1 L (8.4-10.2) mg/dL Total Protein 6.2 L (6.3-8.2) g/dL Albumin 3.4 L (3.5-5.0) g/dL
[2021-09-01] MEDS: PIPERACILLIN-TAZOBACTAM 3.375 GM in SODIUM CHLORIDE 0.9% 100 ML IVPB SCH (17:53)
[2021-09-01] MEDS ORDERED: CITALOPRAM HYDROBROMIDE 20 MG TAB PO SCH (21:00)
[2021-09-01] MEDS: ACETAMINOPHEN TAB 325 MG TAB PO PRN (21:09)
[2021-09-01 23:04] VITALS: RESP 16
[2021-09-02] MEDS: PIPERACILLIN-TAZOBACTAM 3.375 GM in SODIUM CHLORIDE 0.9% 100 ML IVPB SCH ×2 (00:23→07:46)
[2021-09-02] MEDS: SODIUM CHLORIDE 0.9% 1,000 ML IV SCH (00:24)
[2021-09-02] MEDS: PANTOPRAZOLE 40 MG/10 ML VIAL IVP SCH (07:46)
[2021-09-02] MEDS: ACETAMINOPHEN TAB 325 MG TAB PO PRN (07:47)
[2021-09-02] MEDS ORDERED: ASPIRIN 325 MG TAB PO SCH (09:00)
[2021-09-02 10:00] LABS: Chol/HDL Ratio 4.34 Ratio; LDL Cholesterol,Calculated 88.9 mg/dL (0.0-131.0)
--- NOTE | 2021-09-02 10:47 | P.GSCN ---
History of Present Illness Consult date: 09/02/21 History of present illness: 51-year-old female presented to the emergency department with complaints of epigastric and chest pain. She states that this began suddenly at 2 AM prior to her arrival. She initially tried to relieve the pain with attempting to have a bowel movement and passing gas. She also tried baking soda and water and stated she had no relief. She did call EMS to bring her to the emergency department. Initially, secondary to chest pain, cardiac work-up was performed. No significant signs of cardiac event were noticed. Further work-up was performed gallbladder ultrasound. This did reveal gallstones and gallbladder wall thickening. Since her admission, the patient states that her pain has resolved. She denies any nausea or vomiting. She has no evidence of leukocytosis and no elevation in transaminase levels. Review of Systems All systems: negative Past Medical History Past Medical History: No Reported History History of Any Multi-Drug Resistant Organisms: None Reported Past Surgical History: Breast Surgery Additional Past Surgical History / Comment(s): BREAST REDUCTION Past Psychological History: Anxiety, Depression Past Alcohol Use History: None Reported Past Drug Use History: None Reported - Past Family History Mother Family Medical History: COPD Father Additional Family Medical History / Comment(s): from AAA at 60 years old Medications and Allergies Home Medications Medication Instructions Recorded Confirmed Type ALPRAZolam [Xanax] 0.5 mg PO TID PRN 11/18/18 09/01/21 History Citalopram Hydrobromide [CeleXA] 40 mg PO HS 11/18/18 09/01/21 History Ondansetron [Zofran] 4 mg PO Q8HR PRN #30 tab 09/01/21 Rx Pantoprazole Sodium [Protonix] 40 mg PO AC-BID #30 tab 09/01/21 Rx Allergies Allergy/AdvReac Type Severity Reaction Status Date / Time pineapple AdvReac ALLEN & Verified 09/01/21 06:36 Nausea Surgical - Exam Osteopathic Statement: *. No significant issues noted on an osteopathic structural exam other than those noted in the History and Physical/Consult. Vital Signs Temp Pulse Resp BP Pulse Ox 98.1 F 60 18 144/78 100 09/01/21 03:36 09/01/21 03:36 09/01/21 03:36 09/01/21 03:36 09/01/21 03:36 - General well nourished, no distress - Eyes normal ocular movement - ENT no hearing loss - Neck trachea midline - Respiratory normal respiratory effort - Abdomen Abdomen: soft, non tender - Psychiatric oriented to time, oriented to person, oriented to place Results - Labs 09/01/21 03:34 09/01/21 03:34 Assessment and Plan Plan: Case was discussed in depth with the patient. Her symptoms have resolved. She also is concerned about her PTO time with her job. Based on no evidence of leukocytosis and no elevation in transaminases with resolution of symptoms, it is reasonable to plan an outpatient elective cholecystectomy. The patient is agreeable with this plan due to her scheduling conflicts. Follow-up information will be provided to the patient. This was also discussed with the admitting team. I do recommend patient being sent home on oral antibiotics at this time. She will follow-up for elective cholecystectomy. I did recommend a low-fat diet. She is to present back to the emergency department with any recurring symptoms.
--- NOTE | 2021-09-02 11:39 | P.PN ---
Subjective HISTORY OF PRESENTING ILLNESS This is a pleasant 51-year-old female past medical history significant for anxiety. She does not follow with a tailing hand. She does not have a history of cardiac disease. We have been asked to see in consultation for chest pain. Patient presents emergency department with complaints of episode of chest pressure that began yesterday at 2 PM. Chest pressure is located in the center of her chest. Radiating to the left side of her chest/left breast. The pain is constant, nonexertional. She states yesterday the chest pain continued and she had associated nausea. She states she had some baking soda and water with no relief. She called EMS and was brought to the emergency department. In the EMS patient denied 9/10 chest pressure, she was given aspirin and some legal nitroglycerin with no relief. She was also given 4 mg of IV morphine overnight and 4 mg by morphine this morning. She continues to have some mild chest pressure, states it has significantly improved and rated 4/10. DIAGNOSTICS EKG reveals sinus bradycardia, heart rate 59, some mild ST depression in lead II. No prior EKG to compare. Chest xray no acute cardiopulmonary process. Echocardiogram revealed EF of 6065%, trace to mild mitral regurgitation, mild tricuspid regurgitation. US Gallbladder showed multiple gallstones 09/02/2021 Patient seen and examined at bedside, no acute distress. Her nausea is i mproved. Denies any chest pain or shortness of breath. Surgery evaluated the patient and likely plan for an outpatient elective cholecystectomy. Acute coronary syndrome has been ruled out, troponins have been negative 3. Telemetry reviewed patient maintained sinus mechanism. Vital signs are stable PHYSICAL EXAMINATION Vitals Reviewed CONSTITUTIONAL: No apparent distress. HEENT:Neck Supple. No JVD. No carotid bruit. CHEST EXAMINATION: Lungs are clear to auscultation. No chest wall tenderness is noted on palpation or with deep breathing. HEART EXAMINATION: Regular rate and rhythm. S1, S2 heard. No murmurs, gallops or rub. ABDOMEN: Soft, nontender. Positive bowel sounds. EXTREMITIES: 2+ peripheral pulses, no lower extremity edema and no calf tenderness. NEUROLOGIC EXAMINATION: Patient is awake, alert and oriented x3. ASSESSMENT Chest pain, atypical, acute coronary syndrome has ruled out Cholelithiasis History of anxiety PLAN An acute coronary event has been ruled out with no EKG evidence of ischemia and negative cardiac enzymes. Perform stress echo test to assess for stress induced cardiac ischemia. Stress test is negative for stress induced ischemia, patient is ok to be discharge from a cardiology perspective. Nurse practitioner note has been reviewed by physician. Signing provider agrees with the documented findings, assessment, and plan of care. Objective - Vital Signs Vital signs: Vital Signs Temp 98.3 F 09/02/21 07:00 Pulse 82 09/02/21 07:00 Resp 16 09/02/21 07:00 BP 144/81 09/02/21 07:00 Pulse Ox 97 09/02/21 07:00 Intake & Output 09/01/21 09/02/21 09/02/21 18:59 06:59 18:59 Weight 70.307 kg Other: # Voids 2 - Labs CBC & Chem 7: 09/01/21 03:34 09/01/21 03:34 Labs: Abnormal Lab Results - Last 24 Hours (Table) 09/02/21 Range/Units 06:39 Triglycerides 152.00 H (0.00-149.00) mg/dL HDL Cholesterol 35.70 L (40.00-60.00) mg/dL
--- NOTE | 2021-09-02 12:34 | P.STRESS ---
- Stress Test Note Stress Test Results/Findings: Exam Performed: Exam Date: Reason for Exam: Height: 5 ft 4 in Weight: 70.307 kg Protocol: Stage: Duration of Exercise: Resting Heart Rate: Resting Blood Pressure: Maximum Achieved Heart Rate: Maximum Achieved Blood Pressure: 85% PMHR: 100% PMHR: METS: Technologist Comment: Stress Test Results/Findings: This is a 51-year-old female who was admitted to the hospital with complaints of chest pain. Stress data: Baseline EKG showed sinus rhythm with minor nonspecific ST-T abnormalities. Blood pressure at rest is 156/90. Pulse rate of 71. Patient walked on the Daniel protocol for 9 minutes and 30 seconds achieving a maximum heart rate of 165 with a blood pressure of 201/85. EKGs taken during and after exercise showed mild J-point depression with upsloping ST segments in inferolateral leads which are not diagnostic for ischemia. Patient did not experience any chest pain. Echo data: Baseline echo images show normal wall motion and thickening. Exercise echo images showed augmentation of wall motion and thickening in all the segments. Final impression: #1. Nondiagnostic stress test because of baseline EKG changes. However, no significant changes were found to suggest ischemia. Patient did not experience any chest pain. #2. Negative stress echo
--- NOTE | 2021-09-02 12:55 | P.DS ---
Providers Date of admission: 09/01/21 06:18 Expected date of discharge: 09/02/21 Attending physician: Maribell Darling MD Consults: 09/01/21 06:18 Consult Physician Urgent Consulting Provider: Daina Aguero Consult Reason/Comments: cp Do you want consulting provider notified?: Yes 09/01/21 16:02 Consult Physician Routine Consulting Provider: Randi Cobb Consult Reason/Comments: GB Do you want consulting provider notified?: Yes Primary care physician: Live [facility] Course: HISTORY OF PRESENT ILLNESS This is a 51-year-old female patient of Dr. Pollard with past medical history of generalized anxiety disorder. Patient states that she woke up with chest pain in the middle of her chest was a pressure-type along with nausea she has never had anything like this in the past. She denies any spicy foods. She ate pot roast for dinner last night and also had cake and coffee around 5:30. She states she occasionally has gastric reflux but does not take any medications. Chest pain was in the center and radiated to the left side of her chest. No radiation into her neck or arms. She states that her father had aortic dissection at age 60 and its only reason she came into the hospital. She received 1 nitroglycerin from EMS not sure if this helped but morphine did help her pain. She continues to have nausea and was started on Zofran and Reglan but was unable to perform the stress test ordered by cardiology. Patient finally had one emesis and has been feeling better since. She denies any history of gallbladder disease and no right upper quadrant tenderness, no diarrhea, a little tenderness in the epigastric area. He denies any increased stress in her life. Patient presented to [facility] emergency center for further evaluation and treatment. She was found to be afebrile, heart rate in the 60s, blood pressure 144/78, pulse ox 100% on room air. EKG is sinus bradycardia with inverted T in the V1 lead. CBC was unremarkable. Sodium 136, potassium 3.6, chloride 110, CO2 20, creatinine 0.94. Liver function tests were normal. Calcium 8.1. ProBNP 67. Troponin negative on 2 draws. Albumin 3.4. Lipase 131. 3/2: Ultrasound of the gallbladder came back to correlate for cholecystitis, there is cholelithiasis. Consult was placed with Dr. Cobb and he is recommending discharge home today and outpatient follow-up. Patient has been afebrile, heart rate 82, blood pressure 144/81, pulse ox 97% on room air. Triglycerides 152, cholesterol 155, LDL 88, HDL 35. Stress test was nondiagnostic because of baseline EKG changes. However no significant changes were found to suggest ischemia. Patient did not experience any chest pain. Negative stress echo. Patient will be discharged home today in stable condition. DISCHARGE DIAGNOSES 1. Chest pain with negative troponins. 2. Intractable nausea secondary to cholecystitis. 3. Generalized anxiety disorder. DISCHARGE PLAN Return home. Greater than 35 minutes was utilized and coordinating patient's discharge. Impression and plan of care have been directed as dictated by the signing phys ician. Dottie Crane nurse practitioner acting as scribe for signing physician. Patient Condition at Discharge: Good Plan - Discharge Summary New Discharge Prescriptions: New Amoxic-Pot Clav 875-125Mg [Augmentin 875-125] 1 tab PO Q12HR 7 Days #14 tab Pantoprazole Sodium [Protonix] 40 mg PO AC-BID #30 tab Ondansetron [Zofran] 4 mg PO Q8HR PRN #30 tab PRN Reason: Nausea Continue Citalopram Hydrobromide [CeleXA] 40 mg PO HS ALPRAZolam [Xanax] 0.5 mg PO TID PRN PRN Reason: Anxiety Discharge Medication List ALPRAZolam [Xanax] 0.5 mg PO TID PRN 11/18/18 [History] Citalopram Hydrobromide [CeleXA] 40 mg PO HS 11/18/18 [History] Ondansetron [Zofran] 4 mg PO Q8HR PRN #30 tab 09/01/21 [Rx] Pantoprazole Sodium [Protonix] 40 mg PO AC-BID #30 tab 09/01/21 [Rx] Amoxic-Pot Clav 875-125Mg [Augmentin 875-125] 1 tab PO Q12HR 7 Days #14 tab 09/02/21 [Rx] Follow up Appointment(s)/Referral(s): Live Pollard MD [Primary Care Provider] - 1 Week Randi Cobb DO [Doctor of Osteopathic Medicine] - 03/23/22 1:45 pm Patient Instructions/Handouts: Gallstones (DC) Discharge Disposition: HOME SELF-CARE
[2021-09-02 15:17] VITALS: BP 149/89; PULSE 84; TEMP 98.1
== END 2021-09-02 16:10 | disposition home or self-care (01) ==
LOC: EC 03:20 → 6NMEDSUR 06:18
PROVIDERS: ADMIT Internal Medicine; ATTEND Internal Medicine
DX: R07.2 Precordial pain (principal); K80.00 Calculus of gallbladder with acute cholecystitis without obstruction; F41.1 Generalized anxiety disorder; K21.9 Gastro-esophageal reflux disease without esophagitis; R00.1 Bradycardia, unspecified; R00.2 Palpitations; Z82.5 Family history of asthma and other chronic lower respiratory diseases; Z79.899 Other long term (current) drug therapy; F32.A Depression, unspecified; Z91.018 Allergy to other foods; Z80.8 Family history of malignant neoplasm of other organs or systems; Z82.49 Family history of ischemic heart disease and other diseases of the circulatory system
CPT/HCPCS: 99285; 96376 ×2; 96366 ×2; 96361; 96365; 96375; 36415; 93005; 93306; 93351; 85379; 83880; 80061; 80053; 83690; 83735; 84484; 85025; 85610; 85730; 87040; 71046; 76705; G0378 ×2; J2543 ×2; J2270; J2765; J2405; C9113 ×2

== ENCOUNTER 2021-10-09 13:43 | Day surgery (SDC) | payer MEDICAID ==
[2021-10-07 10:24] VITALS: BMI 26.6
[~2021-10-09 13:43] MED LIST: DEXAMETHASONE SOD PHOSPHATE 4 MG/ML 1 ML VIAL IV ONE; HEPARIN SODIUM,PORCINE/PF 5,000 UNIT/0.5 ML SYRINGE SQ PRN; HYDROmorphone 0.5 MG/0.5 ML SYRINGE IVP PRN; LACTATED RINGERS 1,000 ML IV SCH; LIDOCAINE 1% (10MG/ML) FOR IV START INTRADERMA PRN; MIDAZOLAM 2 MG/2 ML VIAL IV PRN; ONDANSETRON 4 MG/2 ML VIAL IVP ONE
--- NOTE | 2021-10-09 14:17 | P.HPIHPCON ---
History of Present Illness H&P Date: 10/09/21 51-year-old female presents today for cholecystectomy. She has had cholecystitis episodes in the past that led to hospital admission. She states that she has occasional right upper quadrant pain after fatty meals since that admission. Ultrasound of the gallbladder that was performed at that time revealed multiple gallstones with concern for gallbladder wall thickening and pericholecystic fluid. This was on 09/01/2021. At that time, patient was concerned about PTO and wanted to delay surgical management. Consent for Procedure: I have explained the operation/procedure to the patient, including the risks, benefits, side effects, alternative therapies (including not receiving the proposed treatment or service), the likelihood of the patient achieving his/her goals, and potential recuperation problems for the procedure/sedation/analgesia, as well as any blood products, if indicated. I also explained to the patient the risks, benefits and side effects of the alternatives, as well as the risks related to not receiving the proposed procedure, care, treatment, or services. - Review of Systems All systems: negative Past Medical History Past Medical History: No Reported History Additional Past Medical History / Comment(s): Gallstones. History of Any Multi-Drug Resistant Organisms: None Reported Past Surgical History: Breast Surgery Additional Past Surgical History / Comment(s): BREAST REDUCTION. Past Anesthesia/Blood Transfusion Reactions: No Reported Reaction Past Psychological History: Anxiety, Depression Smoking Status: Never smoker Past Alcohol Use History: None Reported Past Drug Use History: None Reported - Past Family History Mother Family Medical History: COPD Father Additional Family Medical History / Comment(s): from AAA at 60 years old. Brother(s) Family Medical History: Cancer Medications and Allergies Home Medications Medication Instructions Recorded Confirmed Type ALPRAZolam [Xanax] 0.5 mg PO TID PRN 11/18/18 10/07/21 History Citalopram Hydrobromide [CeleXA] 40 mg PO DAILY 11/18/18 10/07/21 History Ondansetron [Zofran] 4 mg PO Q8HR PRN #30 tab 09/01/21 10/07/21 Rx Pantoprazole Sodium [Protonix] 40 mg PO AC-BID #30 tab 09/01/21 10/07/21 Rx Allergies Allergy/AdvReac Type Severity Reaction Status Date / Time pineapple AdvReac ALLEN & Verified 10/09/21 13:58 Nausea Surgical - Exam Osteopathic Statement: *. No significant issues noted on an osteopathic structural exam other than those noted in the History and Physical/Consult. Vital Signs Temp Pulse Resp BP Pulse Ox 98.0 F 87 16 154/86 96 10/09/21 14:07 10/09/21 14:07 10/09/21 14:07 10/09/21 14:07 10/09/21 14:07 - General well nourished, no distress - Neck trachea midline - Abdomen Abdomen: soft, non tender - Psychiatric oriented to time, oriented to person, oriented to place Assessment and Plan Plan: 51-year-old female with history of cholecystitis and cholelithiasis. Plan is fo r laparoscopic robotic-assisted cholecystectomy. Risks, benefits and alternatives were provided to the patient. Further recommendations after procedure.
[2021-10-09] MEDS ORDERED: PROPOFOL 10 MG/ML 20 ML VIAL IV ONE (14:25)
[2021-10-09] MEDS ORDERED: SUCCINYLCHOLINE CHLORIDE 100 MG/5 ML SYR IV ONE (14:25)
[2021-10-09] MEDS ORDERED: ePHEDrine 50 MG/ML 1 ML VIAL ONE (14:25)
[2021-10-09] MEDS ORDERED: MIDAZOLAM 2 MG/2 ML VIAL ONE (14:25)
[2021-10-09] MEDS ORDERED: NEOSTIGMINE 1 MG/ML 10 ML VIAL ONE (14:25)
[2021-10-09] MEDS ORDERED: ROCURONIUM 10 MG/ML (5 ML VIAL) IV ONE (14:25)
[2021-10-09] MEDS ORDERED: fentaNYL (PF) 50 MCG/ML 2 ML AMP ONE (14:25)
[2021-10-09] MEDS ORDERED: GLYCOPYRROLATE 0.2 MG/ML 2 ML VIAL ONE (14:25)
[2021-10-09] MEDS ORDERED: LIDOCAINE 1% INJ 10MG/ML (20 ML MDV) ONE (14:25)
[2021-10-09] MEDS ORDERED: HYDROmorphone (PF) 1 MG/ML ONE (14:25)
[2021-10-09 14:28] LABS: Basophils % (A) 1 %; Eosinophils # (A) 0.6 k/uL (0-0.7); Eosinophils % (A) 9 %; HCT 43.1 % (34.0-46.0); HGB 14.7 gm/dL (11.4-16.0); Lymphocytes # (A) 0.9 k/uL (1.0-4.8); Lymphocytes % (A) 12 %; MCH 30.6 pg (25.0-35.0); MCHC 34.1 g/dL (31.0-37.0); MCV 89.7 fL (80.0-100.0); Mean Platelet Volume 7.8; Monocytes # (A) 0.2 k/uL (0-1.0); Monocytes % (A) 3 %; Neutrophils # (A) 5.4 k/uL (1.3-7.7); Neutrophils % (A) 74 %; Platelet Count 339 k/uL (150-450); RDW 12.7 % (11.5-15.5); WBC 7.3 k/uL (3.8-10.6)
[2021-10-09] MEDS ORDERED: BUPIVACAIN-EPI 0.25%-1:200,000 30 ML VIAL SQ ONE ×3 (14:35→14:44)
--- NOTE | 2021-10-09 15:31 | P.OP ---
Date of Procedure: 10/09/21 Preoperative Diagnosis: Symptomatic cholelithiasis Cholecystitis Postoperative Diagnosis: Symptomatically cholelithiasis Cholecystitis Procedure(s) Performed: Robotic cholecystectomy Anesthesia: ALLEN Surgeon: Randi Cobb Pathology: other (Gallbladder and contents) Condition: stable Disposition: same day Indications for Procedure: 51-year-old female with history of acute cholecystitis and cholelithiasis presents today for cholecystectomy. Risks, benefits and alternatives were presented to the patient. She did provide consent prior to attending the operating suite. Operative Findings: Cholelithiasis Description of Procedure: The patient was brought to the operating suite and placed in supine position on the operating table. Sedation was provided by anesthesia and the patient underwent endotracheal intubation. She was then prepped and draped in regular sterile fashion. An infraumbilical incision was made and dissection was carried to the fascia. The fascia was incised and an 8 mm trocar was placed. Pneumoperitoneum was achieved. 2 additional 8 mm trochars were placed in the right lower quadrant one was placed in left lower quadrant. The robot was then docked and instruments were placed. The gallbladder was retracted superiorly and laterally. It was noted to be adhesed with peritoneal attachments to surrounding structures and these were peeled away bluntly. Dissection was then carried to skeletonize the cystic duct around the infundibulum. This was completed and the cystic duct was anatomically notated using both ICG technology and visualization of the critical view. 2 clips were placed proximally on the cystic duct and one was placed distally and the cystic duct was ligated. Similarly, the cystic artery was skeletonized and 2 clips were placed proximally one was placed distally and the cystic artery was ligated. Cautery was then used to dissect the gallbladder from the gallbladder fossa. Hemostasis was noted to be maintained. The gallbladder was then placed in an Endo Catch bag and removed from the abdomen from the infraumbilical port site. Irrigation and suction was placed in the right upper quadrant. Hemostasis continued to be maintained. There is no evidence of bile leakage. The infraumbilical incision fascial site was then closed with a [id number] Vicryl suture placed under direct visualization using a Jj-Omar device. Pneumoperitoneum was then released and all ports removed from the abdomen. All skin incisions were then closed with 4-0 Vicryl subcuticular suture. Sterile dressing was applied. Sponge and instrument count were correct 2. The patient was awakened and taken to postanesthesia care unit in stable condition.
[2021-10-09 15:43] VITALS: TEMP 97.9
[2021-10-09 15:47] VITALS: RESP 16
[2021-10-09 16:40] VITALS: BP 147/79; PULSE 87
[2021-10-09] MEDS ORDERED: IV FLUID CONTINUATION 1,000 ML IV ONE (17:09)
== END 2021-10-09 17:14 | disposition home or self-care (01) ==
LOC: OR 13:43
PROVIDERS: ATTEND Surgery
DX: K80.10 Calculus of gallbladder with chronic cholecystitis without obstruction (principal); F32.A Depression, unspecified; F41.9 Anxiety disorder, unspecified
CPT/HCPCS: 47600; S2900; 85025; 88304